=== PATIENT | male | born 2000 | race Caucasian/White ===

== ENCOUNTER 2018-10-15 21:09 | Emergency (ER) | payer OTHER ==
[2018-10-15 21:39] VITALS: BP 142/62
--- NOTE | 2018-10-15 23:07 | RADIOLOGY REPORT (SQ) ---
EXAM DESCRIPTION: XR KNEE 4 OR MORE VIEWS COMPLETED DATE/TME: 10/15/2018 22:07 CLINICAL HISTORY: 18 years, Male, pain COMPARISON: None. FINDINGS: 3 views of the left knee. No acute fracture or dislocation. Normal osseous mineralization. Small joint effusion. IMPRESSION: 1. No acute fracture identified. 2. Small joint effusion. If there is concern for internal derangement MRI would provide additional characterization. copyright 2010 [employer]- All Rights Reserved
--- NOTE | 2018-10-16 05:27 | ER Document Report ---
HPI - HPI Patient complains to provider of: Left patella dislocation Time Seen by Provider: 10/16/18 05:15 Pain Level: 5 Context: 18-year-old male with no past medical history presents to the emergency department for left knee pain and inability to bear weight. He said that he was throwing a football around with a couple of his friends on Friday and he felt his patella pop out of place so he immediately strained his leg out to pop in pl [address]. This is a common occurrence for him so he rested and then attempted to play again. It happened a couple more times and since then he has had the symptoms. He is able to move his knee, complains of edema, complains of pain, denies fevers or chills. No other complaints - CONSTITUTIONAL Constitutional: DENIES: Fever, Chills - EENT EENT: DENIES: Sore Throat, Ear Pain, Eye problems - NEURO Neurology: DENIES: Headache, Weakness, Vision blurred, Dizzinesss / Vertigo - CARDIOVASCULAR Cardiovascular: DENIES: Chest pain - RESPIRATORY Respiratory: DENIES: Trouble Breathing, Coughing - GASTROINTESTINAL Gastrointestinal: DENIES: Abdominal Pain, Black / Bloody Stools - URINARY Urinary: DENIES: Dysuria, Urgency, Frequency - MUSCULOSKELETAL Musculoskeletal: REPORTS: Extremity pain Past Medical History - Social History Smoking Status: Current Every Day Smoker Family History: None Patient has suicidal ideation: No Patient has homicidal ideation: No Renal/ Medical History: Denies: Hx Peritoneal Dialysis Vertical Provider Document - CONSTITUTIONAL Notes: PHYSICAL EXAMINATION: Reviewed vital signs and charting by RN GENERAL: Well-appearing, well-nourished and in no acute distress. HEAD: Atraumatic, normocephalic. No scalp deformity, depression, or crepitance. EYES: Pupils are 3 mm and equal/round, extraocular movements intact, sclera anicteric, conjunctiva are normal. EXTREMITIES: normal range of motion, some mild edema of the left knee. No pain to palpation along the joint line. Patella is in place. 5/5 strength. NEUROLOGICAL: No focal neurological deficits. Cranial nerves III-XII grossly intact. Moves all extremities spontaneously and on command. PSYCH: Normal mood, normal affect. No suicidal thoughts/ideations. No homocidal thoughts/ideations. No hallucinations. SKIN: Warm, dry, normal turgor, no rashes or lesions noted. 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 I will place him in a knee immobilizer and given crutches. He cannot bear weight on it right now. X-ray showed a small effusion. Stable for discharge. - Vital Signs Vital signs: Temp Pulse Resp BP Pulse Ox 98.9 F 76 20 142/62 H 99 10/15/18 21:36 10/15/18 21:36 10/15/18 21:36 10/15/18 21:36 10/15/18 21:36 Discharge - Discharge Clinical Impression: Left knee pain Qualifiers: Chronicity: acute Qualified Code(s): M25.562 - Pain in left knee Condition: Good Disposition: HOME, SELF-CARE Instructions: Use of Crutches ([facility]), Ice & Elevation ([facility]), Suspected Internal Knee Injury ([facility]), Knee Immobilizing Splint ([facility]) Additional Instructions: You are seen in emergency department this morning for a knee injury. We placed you in a knee immobilizer and gave you crutches. Your x-ray showed that you might have some type of internal derangement and advanced imaging might be warranted. For now you can keep your knee in the brace while you are active to prevent your kneecap from pop in place. Decreased to 600 mg every 6 hours as needed for pain and inflammation. You can take Tylenol 1000 mg every 6 hours for pain. If your toes start to turn blue, you lose sensation in your left leg, you develop severe intractable pain in your knee please return to the emergency department for reevaluation. If your knee starts to become red hot and swollen, you are unable to move your knee joint at all please immediately return to the emergency department
== END 2018-10-16 05:52 | disposition home or self-care (01) ==
LOC: ER 21:09
DX: M25.562 Pain in left knee (principal); M25.462 Effusion, left knee; F17.200 Nicotine dependence, unspecified, uncomplicated
CPT/HCPCS: 99283; 73564; L1830